=== PATIENT | female | born 1985 | race Caucasian/White ===

== ENCOUNTER 2017-01-27 13:33 | Emergency (ER) | payer MEDICAID ==
[~2017-01-27] VITALS: Ht 162.6 cm; Wt 61.2 kg
[2017-01-27 13:18] VITALS: BP 102/60
[~2017-01-27 13:33] MED LIST: IBUPROFEN600 MG ORAL
--- NOTE | 2017-01-27 14:09 | Diagnostic Imaging Report ---
Indication: PAIN altered metal status, overdose Technique: Continuous helical CT scanning of the head was performed without intravenous contrast material. Axial and coronal 5 mm sections were generated. Radiation dose was minimized using automated exposure control Dose: Total Dose Length Product - DLP [address] Dose Index - CTDIvol(s) 70.38 mGy. Comparison: 02/28/2014 Findings: The ventricular system is normal in size and configuration. There is no shift of midline structures. No abnormal extra-axial fluid collections are noted. There is no evidence of intracerebral bleeding. No other abnormal high or low density areas are noted within the brain. The orbits are unremarkable. The included sinuses are clear. The mastoids are clear. The calvarium is intact. No significant interim change Impression: Normal CT scan of the head without contrast material. The CT scanner at [facility] is accredited by the [employer] and the scans are performed using protocols designed to limit radiation exposure to as low as reasonably achievable to attain images of sufficient resolution adequate for diagnostic evaluation.
[2017-01-27 14:41] LABS: BASOPHILS % (AUTO) 0.8 % (0.0-2.0); EOSINOPHILS % (AUTO) 0.7 % (0.0-3.0); LYMPHOCYTES % (AUTO) 19.9 % (20.0-45.0); MEAN CORPUSCULAR HEMOGLOBIN 29.2 PG (27.0-31.0); MEAN CORPUSCULAR HGB CONC 32.5 G/DL (32.0-36.0); MEAN CORPUSCULAR VOLUME 90 FL (80-99); MEAN PLATELET VOLUME 6.7 FL (6.5-10.1); NEUTROPHILS % (AUTO) 71.6 % (45.0-75.0); PLATELET COUNT 292 K/UL (150-450); RED BLOOD COUNT 4.49 M/UL (4.20-5.40); WHITE BLOOD COUNT 7.8 K/UL (4.8-10.8)
[2017-01-27 14:56] LABS: ANION GAP 9 mmol/L (5-15); CALCIUM 9.3 MG/DL (8.5-10.1); CARBON DIOXIDE 27 MMOL/L (21-32); CHLORIDE 104 MMOL/L (98-107); CREATININE 0.8 MG/DL (0.55-1.30); GLOMERULAR FILTRATION RATE > 60 mL/min (>60); POTASSIUM 3.6 MMOL/L (3.5-5.1); SODIUM 140 MMOL/L (136-145)
[2017-01-27 15:01] LABS: ALANINE AMINOTRANSFERASE 19 U/L (12-78); ALBUMIN/GLOBULIN RATIO 0.9 (1.0-2.7); ASPARTATE AMINO TRANSFERASE 12 U/L (15-37); TOTAL PROTEIN 7.6 G/DL (6.4-8.2)
[2017-01-27 15:30] VITALS: BP 116/72
[2017-01-27 15:34] LABS: ALCOHOL < 3 mg/dL
[2017-01-27 15:35] LABS: ACETAMINOPHEN < 2 MCG/ML (10-30)
[2017-01-27] MEDS ORDERED: Sodium Chloride 500ML 500 ML IV ONE (16:00)
[2017-01-27 18:10] VITALS: BP 102/71
[2017-01-27 20:45] VITALS: BP 102/71
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
== END 2017-01-27 20:45 | disposition home or self-care (01) ==
LOC: EDBD 13:33 → EMR 14:10
DX: F15.10 Other stimulant abuse, uncomplicated (principal); R51 Headache
CPT/HCPCS: 36415; 70450; 80053; 80307; 80329; 81025; 85025; 96360; 99284

== ENCOUNTER 2018-03-15 20:40 | Emergency (ER) | payer MEDICAID ==
[2018-03-15] VITALS (14 sets, daily range): BP systolic 119–131; BP diastolic 74–88
[~2018-03-15] VITALS: Ht 167.6 cm; Wt 83.9 kg
[~2018-03-15 20:40] MED LIST changes: +ABILIFY2 MG ORAL; +QUETIAPINE FUMA25 MG ORAL
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
--- NOTE | 2018-03-15 20:55 | NUR ---
ED Nurse Note: Blood sample sent to Lab.
[2018-03-15] MEDS ORDERED: Haloperidol 5mg/ml Inj IM ONE (22:15)
[2018-03-15] MEDS ORDERED: LORazepam Inj 2mg/ml 1ml IM ONE (22:15)
[2018-03-15] MEDS ORDERED: DiphenhydrAMINE 50mg/ml Inj IM ONE (22:15)
[2018-03-15 22:35] LABS: BASOPHILS % (AUTO) 1.1 % (0.0-2.0); EOSINOPHILS % (AUTO) 0.9 % (0.0-3.0); HEMATOCRIT 35.8 % (37.0-47.0); HEMOGLOBIN 11.7 G/DL (12.0-16.0); LYMPHOCYTES % (AUTO) 27.6 % (20.0-45.0); MEAN CORPUSCULAR VOLUME 90 FL (80-99); MONOCYTES % (AUTO) 7.2 % (1.0-10.0); NEUTROPHILS % (AUTO) 63.2 % (45.0-75.0); PLATELET COUNT 230 K/UL (150-450); RED BLOOD COUNT 3.96 M/UL (4.20-5.40); RED CELL DISTRIBUTION WIDTH 12.2 % (11.6-14.8); WHITE BLOOD COUNT 6.6 K/UL (4.8-10.8)
[2018-03-15 22:38] LABS: ANION GAP 10 mmol/L (5-15); BLOOD UREA NITROGEN 11 mg/dL (7-18); CALCIUM 9.1 MG/DL (8.5-10.1); CARBON DIOXIDE 25 MMOL/L (21-32); CHLORIDE 105 MMOL/L (98-107); POTASSIUM 3.4 MMOL/L (3.5-5.1); SODIUM 140 MMOL/L (136-145)
[2018-03-15 23:02] LABS: ALANINE AMINOTRANSFERASE 28 U/L (12-78); ALBUMIN 3.6 G/DL (3.4-5.0); ALBUMIN/GLOBULIN RATIO 1.1 (1.0-2.7); ALKALINE PHOSPHATASE 83 U/L (46-116); ASPARTATE AMINO TRANSFERASE 30 U/L (15-37); BILIRUBIN,TOTAL 0.4 MG/DL (0.2-1.0)
--- NOTE | 2018-03-15 23:30 | NUR ---
ED Nurse Note: Pt asleep when visited, VSS no distress.
[2018-03-16] VITALS (11 sets, daily range): BP systolic 109–130; BP diastolic 68–89
--- NOTE | 2018-03-16 00:30 | NUR ---
ED Nurse Note: DC restraints per ERMD order. Pt is AO x 4times, VSS, on room air no distress, Skin no tear no damage, circulation present well at both arms. Pt follow instruction well, calm and ask for the food.
--- NOTE | 2018-03-16 01:00 | NUR ---
ED Nurse Note: Urinr sample sent to Lab.
--- NOTE | 2018-03-16 01:06 | Emergency Room Report ---
History of Present Illness General Chief Complaint: Behavioral Complaint Source: Patient (Gilbert Medrano MD) Present Illness HPI Patient presents to the emergency room via EMS. Apparently she is taken an overdose of Seroquel and has been using amphetamine. She told police that she wanted to kill herself. Therefore she was placed on a 5150. The patient is lethargic and refuses to answer more questions. The patient is on Abilify and Seroquel. She has a history of psychiatric disorder. The patient was seen in December for amphetamine abuse. (Gilbert Medrano MD) Allergies: Coded Allergies: NO KNOWN DRUG ALLERGIES (Unverified Allergy, Unknown, 03/09/14) Patient History Limited by: medical condition - Patient refuses to answer Past Medical History: see triage record, old chart reviewed Social History: Reports: drug use Social History Narrative Patient is picked up from home. Last Menstrual Period: UNK Now: No Reviewed Nursing Documentation: PMH: Agreed; PSxH: Agreed (Gilbert Medrano MD) Nursing Documentation-PMH Hx Cardiac Problems: No Hx Hypertension: No Hx Pacemaker: No Hx Asthma: No Hx COPD: No Hx Diabetes: No Hx Cancer: No Hx Gastrointestinal Problems: No Hx Dialysis: No History Of Psychiatric Problem: Yes - SCHIZ, BIOP, DEPRES Hx Neurological Problems: Yes - Seizures Hx Cerebrovascular Accident: No Hx Seizures: No (Gilbert Medrano MD) Review of Systems All Other Systems: limited (Gilbert Medrano MD) Physical Exam Vital Signs Date Time Temp Pulse Resp B/P (MAP) Pulse Ox O2 Delivery O2 Flow Rate FiO2 03/15/18 20:32 98.1 98 15 97/66 99 Room Air Sp02 EP Interpretation: reviewed, normal General Appearance: non-toxic, other - Lethargic but answers to name Head: normocephalic Eyes: bilateral eye PERRL, bilateral eye Scleral Injection ENT: moist mucus membranes - Gag is present Neck: supple Respiratory: lungs clear, normal breath sounds Cardiovascular #1: regular rate, rhythm Cardiovascular #2: 2+ radial (R) Gastrointestinal: normal inspection, normal bowel sounds, non tender, no mass, non-distended, overweight Genitourinary: no CVA tenderness Musculoskeletal: back normal, normal range of motion Neurologic: responsive, grossly normal Psychiatric: depressed affect Suicide Risk Assessment: Suicidal Ideation: Yes Had intent to initiate attempt: Yes Pt's plan for suicide attempt: Yes Has means to complete attempt: Yes Skin: normal inspection, warm/dry (Gilbert Medrano MD) Medical Decision Making Medical: Substance Abuse Behavioral: Depression, Other Reaction to Intervention: No change Restraint Reassesment I, Gilbert Medrano MD, have personally evaluated this patient. Laboratory tests have been reviewed and addressed accordingly. The patient is deemed to present a danger to themselves and/or others. This is based on the exam, history ( provided by EMS and [employer] ) and observed and reported behavior. Attempts for non-invasive measures have been considered and/or attempted, however, have been futile. It is in the best interest of the nursing staff, the patient, and others involved in this patient's care that behavioral restraints be applied. Patient evaluation reveals the following: lethargic but combative with staff, not respond to attempts to de-escalate and cooperate. (Gilbert Medrano MD) Diagnostic Impression: Primary Impression: Suicidal ideation Additional Impressions: Amphetamine abuse Overdose Qualified Codes: T50.902A - Poisoning by unspecified drugs, medicaments and biological substances, intentional self-harm, initial encounter ER Course Patient presents with suicidal ideation and alleging overdose of Seroquel and amphetamine. Differential includes polypharmacy abuse, Seroquel overdose, other possible toxic ingestions, electrolyte abnormality amongst others. Patient is placed on 5150 by police. She is fighting with staff and noncompliant with treatment. Heart restraints are indicated and the patient will be sedated. Labs will be obtained, EKG. the patient will receive IV hydration. Patient is placed on a 5150 and therefore will need psychiatric evaluation and treatment. She will need to be reassessed when she is more alert. EKG sinus rhythm left atrial enlargement rate [address]-T wave changes. Labs significant for positive amphetamines. CBC and CMP only remarkable for mild anemia and mild hypokalemia. Sedated, able to remove restraints. Signed out to Dr. Tony for observation and probable psychiatric evaluation/ treatment. Laboratory Tests Test 03/15/18 21:15 03/16/18 01:30 White Blood Count 6.6 K/UL (4.8-10.8) Red Blood Count 3.96 M/UL (4.20-5.40) L Hemoglobin 11.7 G/DL (12.0-16.0) L Hematocrit 35.8 % (37.0-47.0) L Mean Corpuscular Volume 90 FL (80-99) Mean Corpuscular Hemoglobin 29.6 PG (27.0-31.0) Mean Corpuscular Hemoglobin Concent 32.8 G/DL (32.0-36.0) Red Cell Distribution Width 12.2 % (11.6-14.8) Platelet Count 230 K/UL (150-450) Mean Platelet Volume 6.8 FL (6.5-10.1) Neutrophils (%) (Auto) 63.2 % (45.0-75.0) Lymphocytes (%) (Auto) 27.6 % (20.0-45.0) Monocytes (%) (Auto) 7.2 % (1.0-10.0) Eosinophils (%) (Auto) 0.9 % (0.0-3.0) Basophils (%) (Auto) 1.1 % (0.0-2.0) Sodium Level 140 MMOL/L (136-145) Potassium Level 3.4 MMOL/L (3.5-5.1) L Chloride Level 105 MMOL/L (98-107) Carbon Dioxide Level 25 MMOL/L (21-32) Anion Gap 10 mmol/L (5-15) Blood Urea Nitrogen 11 mg/dL (7-18) Creatinine 1.0 MG/DL (0.55-1.30) Estimate Glomerular Filtration Rate > 60 mL/min (>60) Glucose Level 164 MG/DL (74-106) H Calcium Level 9.1 MG/DL (8.5-10.1) Total Bilirubin 0.4 MG/DL (0.2-1.0) Aspartate Amino Transferase (AST) 30 U/L (15-37) Alanine Aminotransferase (ALT) 28 U/L (12-78) Alkaline Phosphatase 83 U/L (46-116) Total Protein 7.0 G/DL (6.4-8.2) Albumin 3.6 G/DL (3.4-5.0) Globulin 3.4 g/dL Albumin/Globulin Ratio 1.1 (1.0-2.7) Salicylates Level 2.8 ug/mL (2.8-20) Acetaminophen Level < 2 MCG/ML (10-30) L Serum Alcohol < 3 mg/dL Urine Color Pale yellow Urine Appearance Clear Urine pH 7 (4.5-8.0) Urine Specific [place] 1.005 (1.005-1.035) Urine Protein Negative (NEGATIVE) Urine Glucose (UA) Negative (NEGATIVE) Urine Ketones Negative (NEGATIVE) Urine Blood Negative (NEGATIVE) Urine Nitrite Negative (NEGATIVE) Urine Bilirubin Negative (NEGATIVE) Urine Urobilinogen Normal MG/DL (0.0-1.0) Urine Leukocyte Esterase Negative (NEGATIVE) Urine HCG, Qualitative Negative (NEGATIVE) Urine Opiates Screen Negative (NEGATIVE) Urine Barbiturates Screen Negative (NEGATIVE) Phencyclidine (PCP) Screen Negative (NEGATIVE) Urine Amphetamines Screen Positive (NEGATIVE) H Urine Benzodiazepines Screen Negative (NEGATIVE) Urine Cocaine Screen Negative (NEGATIVE) Urine Marijuana (THC) Screen Negative (NEGATIVE) (Gilbert Medrano MD) ER Course This patient remained calm and stable during her ED course under my care. She is accepted [facility] and was transferred there for further mental health and drug rehabilitation treatment. (Elizabeth Abbott DO) EKG Diagnostic Results Rate: normal Rhythm: NSR ST Segments: no acute changes - Rbbb (Gilbert Medrano MD) Rhythm Strip Diag. Results EP Interpretation: yes Rhythm: NSR, no PVC's, no ectopy (Gilbert Medrano MD) Status: improved (Gilbert Medrano MD) Disposition: XFER TO PSYCH HOSP/UNIT Condition: Improved Referrals: NOT CHOSEN IPA/,REFERRING (PCP) Gilbert Medrano MD Mar 16, 2018 01:06 Ector Tony MD Mar 16, 2018 01:52 Elizabeth Abbott DO Mar 16, 2018 13:23
[2018-03-16 01:40] LABS: APPEARANCE,URINE CLEAR; BILIRUBIN, URINE NEGATIVE (NEGATIVE); COLOR,URINE PALE YELLOW; GLUCOSE, URINE (UA) NEGATIVE (NEGATIVE); KETONES,URINE NEGATIVE (NEGATIVE); LEUKOCYTE ESTERASE ,URINE NEGATIVE (NEGATIVE); NITRITE,URINE NEGATIVE (NEGATIVE); PH,URINE 7 (4.5-8.0); PROTEIN,URINE NEGATIVE (NEGATIVE); UROBILINOGEN,URINE NORMAL MG/DL (0.0-1.0)
--- NOTE | 2018-03-16 01:42 | NUR ---
ED Nurse Note: Pt awaked, Provide snack food and juice. Pt can follow all the instructions well, DC restraints. Addendum: 03/16/18 at 0206 by SARAH ED Nurse Note: Pt awaked, Provide snack food and juice. Pt can follow all the instructions well.
--- NOTE | 2018-03-16 02:00 | NUR ---
ED Nurse Note: Pt belongings lock in locker #2.
--- NOTE | 2018-03-16 06:00 | NUR ---
ED Nurse Note: Provide drink for Pt, Pt VSS, calm and on room air no distress.
--- NOTE | 2018-03-16 07:16 | NUR ---
[facility](spoke w/ Saul), [facility](spoke w/Lexis), and [facility](spoke w Bryson) was called and no bed will be avaliable. [facility](spoke w/Estella) asked us to call back after 0830.
--- NOTE | 2018-03-16 07:24 | NUR ---
HAND-OFF: Report given to OMARI Dominguez.
--- NOTE | 2018-03-16 07:30 | NUR ---
ED Nurse Note: received patient in bed, sitter by the bedside. alert/awake, patient is resting in the bed. patient stated she feels like hurting herself, but has no plan for it.
--- NOTE | 2018-03-16 07:35 | NUR ---
ED Nurse Note: patient's skin assessed, skin is intact, bruises noted on her right lower leg, noted that no restraint is on the patient,
--- NOTE | 2018-03-16 07:57 | NUR ---
ED Nurse Note: breakfast provided to the patient.
--- NOTE | 2018-03-16 10:18 | NUR ---
ED Nurse Note: ANJALI made aware of patient refusing IVF, she said ok
--- NOTE | 2018-03-16 14:53 | NUR ---
ED Nurse Note: report given to Meri at [facility] ambulance is here to picker and sorter load and unload the patient.
--- NOTE | 2018-03-16 15:06 | NUR ---
ED Nurse Note: patient is a/o x4, belonings given to the ambulance personnel Naz Garce
== END 2018-03-16 15:07 | disposition short-term general hospital (02) ==
LOC: EDBD 20:40 → EMR 21:10
DX: R45.851 Suicidal ideations (principal); T43.622A Poisoning by amphetamines, intentional self-harm, initial encounter; Y92.89 Other specified places as the place of occurrence of the external cause
CPT/HCPCS: 36415; 80053; 80307; 80329; 81003; 81025; 85025; 93005; 96374; 96375; 99285; J1200; J1630